=== PATIENT | male | born 1985 | race Caucasian/White ===

== ENCOUNTER 2020-03-04 01:55 | Emergency (ER) | payer BC ==
[2020-03-04] MEDS ORDERED: Tetracaine HCl/PF 0.5% 4 ML Bottle EYELF ONE (01:56)
[2020-03-04] MEDS ORDERED: Dexamethasone/Tobramycin 0.1-0.3% Ophth Susp 2.5 ML Bottle EYELF STA (02:32)
--- NOTE | 2020-03-04 02:35 | EDM.PDOC ---
ED HPI GENERAL MEDICAL PROBLEM - General Chief Complaint: Eye Problems Stated Complaint: SOMETHING IN LT EYE Time Seen by Provider: 03/04/20 02:16 Source of Information: Reports: Patient History Limitations: Reports: No Limitations - History of Present Illness INITIAL COMMENTS - FREE TEXT/NARRATIVE: Patient tried to r his contact lens from his left eye Onset: Today Duration: Hour(s):, Getting Worse Severity: Moderate Worsens with: Reports: None Associated Symptoms: Reports: No Other Symptoms left eye Pain Score (Numeric/FACES): 1 - Related Data Allergies Allergy/AdvReac Type Severity Reaction Status Date / Time amoxicillin Allergy Rash Verified 03/04/20 02:07 Penicillins Allergy Rash Verified 03/04/20 02:07 Past Medical History - Past Health History Medical/Surgical History: Denies Medical/Surgical History HEENT History: Reports: None Cardiovascular History: Reports: None Respiratory History: Reports: None Gastrointestinal History: Reports: None Genitourinary History: Reports: None Musculoskeletal History: Reports: None Neurological History: Reports: None Psychiatric History: Reports: None Endocrine/Metabolic History: Reports: None Hematologic History: Reports: None Immunologic History: Reports: None Oncologic (Cancer) History: Reports: None Dermatologic History: Reports: None - Infectious Disease History Infectious Disease History: Reports: None - Past Surgical History Head Surgeries/Procedures: Reports: None Social & Family History - Family History Family Medical History: Noncontributory - Tobacco Use Smoking Status *Q: Never Smoker - Recreational Drug Use Recreational Drug Use: No ED ROS GENERAL - Review of Systems Review Of Systems: See Below Constitutional: Reports: No Symptoms HEENT: Reports: Eye Pain Respiratory: Reports: No Symptoms Cardiovascular: Reports: No Symptoms Endocrine: Reports: No Symptoms GI/Abdominal: Reports: No Symptoms : Reports: No Symptoms Musculoskeletal: Reports: No Symptoms Skin: Reports: No Symptoms Neurological: Reports: No Symptoms Psychiatric: Reports: No Symptoms Hematologic/Lymphatic: Reports: No Symptoms Immunologic: Reports: No Symptoms ED EXAM GENERAL W FULL EYE - Physical Exam Exam: See Below Exam Limited By: No Limitations General Appearance: Alert, WD/WN, No Apparent Distress Eye Exam: Left Eye: Conjunctival Injection, Corneal Abrasion, Bilateral Eye: Normal Fundi, Normal Inspection Eyelids: Left: Ecchymosis, Erythema, Lid Everted for Exam, Bilateral: Normal Appearance Conjunctiva & Sclera: Left: Conjunctival Edema, Injected (Redness with small corneal abrasion) Ears: Normal External Exam, Normal Canal Neck: Normal Inspection Respiratory/Chest: No Respiratory Distress, Lungs Clear, Normal Breath Sounds, No Accessory Muscle Use, Chest Non-Tender Cardiovascular: Normal Peripheral Pulses Neurological: Alert, Oriented, CN II-XII Intact, Normal Cognition, Normal Gait, Normal Reflexes, No Motor/Sensory Deficits Psychiatric: Normal Affect, Normal Mood Course - Vital Signs Last Recorded V/S: Last Vital Signs Temp 97.1 F 03/04/20 01:57 Pulse 88 03/04/20 01:57 Resp 18 03/04/20 01:57 BP 163/83 H 03/04/20 01:57 Pulse Ox 98 03/04/20 01:57 - Orders/Labs/Meds Meds: Medications Discontinued Medications Generic Name Dose Route Start Last Admin Trade Name Freq PRN Reason Stop Dose Admin Tetracaine HCl 1 ml 03/04/20 01:56 03/04/20 02:13 Tetracaine 0.5% Steri-Unit Joann EYELF 03/04/20 01:57 2 drop ASDIRECTED ONE Administration Departure - Departure Time of Disposition: 02:35 Disposition: Home, Self-Care 01 Condition: Good Clinical Impression: Corneal abrasion Qualifiers: Encounter type: initial encounter Laterality: left Qualified Code(s): S05.02XA - Injury of conjunctiva and corneal abrasion without foreign body, left eye, initial encounter - Discharge Information Prescriptions: Dexamethasone/Tobramycin [Tobradex Ophth Susp] 2.5 ml EYELF Q4H #1 bottle Instructions: Corneal Abrasion, [id number] Referrals: PCP,None [Primary Care Provider] - Additional Instructions: Take your medication as prescribed Follow-up with your primary care physician within 2 days or return to the emergency room for severe pain Sepsis Event Note - Evaluation Sepsis Screening Result: No Definite Risk - Focused Exam Vital Signs: Vital Signs Temp Pulse Resp BP Pulse Ox 03/04/20 01:57 97.1 F 88 18 163/83 H 98 Date Exam was Performed: 03/04/20 Time Exam was Performed: 02:30
== END 2020-03-04 02:50 | disposition home or self-care (01) ==
LOC: MW.ED 01:55
DX: S05.02XA Injury of conjunctiva and corneal abrasion without foreign body, left eye, initial encounter (principal); Z88.1 Allergy status to other antibiotic agents; Z88.0 Allergy status to penicillin; X58.XXXA Exposure to other specified factors, initial encounter
CPT/HCPCS: 99283; A9270; 99282